=== PATIENT | female | born 1950 | race Caucasian/White ===

== ENCOUNTER 2018-04-21 10:39 | Emergency (ER) | payer MEDICARE, SELFPAY ==
[2018-04-21 10:49] VITALS: BMI 30.9
[2018-04-21 10:52] VITALS: BP 161/144; PULSE 41; PULSE 45; RESP 16
[2018-04-21 10:55] VITALS: BP 166/144; PULSE 41; RESP 14
--- NOTE | 2018-04-21 11:01 | EKG12_ITS ---
Test Reason : CODE BLUE Blood Pressure : / mmHG Vent. Rate : 052 BPM Atrial Rate : 051 BPM P-R Int : 000 ms QRS Dur : 156 ms QT Int : 398 ms P-R-T Axes : 000 -41 052 degrees QTc Int : 370 ms Wide QRS rhythm Left axis deviation Non-specific intra-ventricular conduction block Anterolateral injury pattern ACUTE [place] / STEMI Abnormal ECG Confirmed by CHERYL BANG ([id number]), social media editor CAMILO BUSTAMANTE ([id number]) on 04/30/2018 6:03:51 PM Referred By: Cheryl Bang Confirmed By:CHERYL BANG
--- NOTE | 2018-04-21 11:15 | ED.RN ---
lab rejected blue top, not full enough. pt is currently in center medical and lab director.
[2018-04-21 11:21] LABS: Base Excess -28 mmol/L (-2 to +2); Blood Gas Specimen Type ART; FI02 100; Mode A-C; O2 Delivery Device Vent; PEEP 5; PO2 52 mmHG (75-100); RR 14; SITE R Brachial; SO2 51 % (95-99); Time Given 1106; Total Carbon Dioxide 9 mmol/L; Vt 450; pCO2 49.5 mmHg (35-45); pH 6.76 (7.35-7.45)
--- NOTE | 2018-04-21 11:30 | ED.RN ---
Spoke with Tiffanie in ICU, lab states all blood work need redrawn and ICU aware. Lab attempted to call industrial laborer, no response.
--- NOTE | 2018-04-21 12:21 | CPS ---
CPR performed in concrete mixing plant laborer
--- NOTE | 2018-04-21 12:26 | CL.I_ITS ---
Patient Name: CECILY RODRIGEZ Study Date: 04/21/2018 Performing: Gama Bang MD Ht: 66.92 inches 170 cm : 1950 Wt: 198.42 lbs 90 kg Age: 67 Gender: female BSA: 2.01 PROCEDURE(S) PERFORMED EX12-WPC/COR LO76-SEMU INSERTION AG20-[id number] INTRAVENTRICULAR PACING PP38-TKS, ZOE AND/OR PTCA, ARTERY OR GRAFT, SINGLE VESSEL CLINICAL PROFILE AND CO-MORBIDITIES Patient presents with STEMI for emergent cardiac cath. [facility] EMERGENT CATH/PCI. Indications: Cardiac Arrythmia, Other, Post Cardiac Transplant, Out of hospital cardiac vfib arre st with anterior STEMI found after ROSC. Heart Failure: NYHA Class: 4 Stress/Imaging Stress/Image Study Performed: No CAD Presentations: STEMI. Symptom onset Date/Time: 04/21/2018 Time Not Available Other: Out of hos pital vfib cardiac arrest with defib x 4 total. Comorbidities/Risk Factors: Dyslipidemia Current/Recent Smoker (< 1year) CONCLUSIONS Single vessel CAD of the Occluded LAD Acute MT due to occlusion of LAD Successful establishment of temporary transvenous cardiac pacing Successful emergent IABP placed for hemodynamic support. Successful PTCA/ZOE of the proximal LAD with a 2.5 x 24 Promus Synergy, post dilated with a 3.0 x 12 NC Balloon; 100%-->0%, no dissection. RECOMMENDATIONS Referred for immediate PCI Pt had no pulse upon arrival to lab support tech requiring code blue, CPR, emergent temporary PACER wire, suc cessful emergent PCI/ZOE to LAD and emergent IABP. Despite prolonged CPR, IAPB, wide open levophed t hrough a central line and over 30 minutes of CPR post PCI, pts rhythm, pulse and BP never returned. Code called at 12:05pm. DESCRIPTION OF PROCEDURE The patient arrived to the procedure lab. The risks and benefits of the procedure as well as a full d escription of our services here and lack of surgical backup were fully explained to the patient and/o r their significant other prior to the catheterization. The Timeout was completed, verifying the lisbet ect patient and procedure. The patient's procedural site was prepped and draped in the usual fashion. . Using a modified Seldinger technique, arterial access was obtained via the right femoral artery, a 4Fr sheath was inserted. Venous access was obtained via the right femoral vein, a 7Fr sheath was ins erted. CORONARY ANGIOGRAPHY DOMINANCE: Right Dominant LEFT HEART ASSESSMENT Left Ventricular Ejection Fraction: Not assessed not assessed due to pt coding continuously. LEFT MAIN: Angiographically normal LEFT ANTERIOR DECENDING ARTERY: PROX LAD: is occluded CIRCUMFLEX ARTERY: Non-obstructive RIGHT CORONARY ARTERY: MID RCA: Mild luminal irregularities less than 30% INTERVENTION INFORMATION LESION SITE: LAD (Proximal) Lesion Complexity: High/C, lesion at bifurcation: Yes, thrombus present: Yes, lesion length: 24 mm, c ulprit lesion: Yes Pre Stenosis: 100 % Pre intervention CONSTANZA flow: 0 PROCEDURE: Balloon Angioplasty, Bare Metal Stent with pre and post dilatation., Thrombectomy Post Stenosis: 0 % Post intervention CONSTANZA flow: 3 COMPLICATIONS PROCEDURE MEDICATIONS Heparin 6000 unit(s) IV 04/21/2018 11:32:17 SUMMARY OF HEMODYNAMIC DATA Time AIR REST ECG 12:04:44 ECG 12:05:38 Signed By Gama Bang MD On 04/21/2018 12:25:07 Gama Bang MD
--- NOTE | 2018-04-21 13:03 | ED.VISSUMM ---
- ER Visit Summary Date of Service: 04/21/18 Chief Complaint: [Cardiac arrest] History of Present Illness: The patient is a 67 F [who presents the emergency department in cardiac arrest. She called EMS for shortness of breath when EMS arrived she was in cardiac arrest. Her initial rhythm was V. fib. She was shocked and had return of spontaneous circulation. She had purposeful movements. In route she had another episode of V. fib. She was shocked again and had return of spontaneous circulation. On arrival she was in cardiac arrest. Rhythm was V. fib she was shocked epinephrine was given. She also received amiodarone she had an episode of the tach] Physical Examination: [] Pulseless and apneic Cyanosis central Respiratory effort spontaneously No palpable pulse Abdomen nondistended nontraumatic Lower extremities show no swelling or bruising she has an IO in the right tibia Skin shows cyanosis peripheral and central Test Results: [] Emergency Department Course and Treatment: [ACLS protocol was followed. Patient was in V. fib she also had an episode of V. tach and PEA. There are at least 2 episodes of return of spontaneous circulation. She was resuscitated for a prolonged period given atropine for bradycardia EKG showed a junctional rhythm at a rate of [address] elevations anteriorly and ST depressions in the inferior leads. STEMI was called she was given aspirin and Brilinta heparin was withheld due to hemorrhage in the ET tube she was taken to the Client Resource Specialist where she coded and ] Treatment Plan: [] Disposition: [Client Resource Specialist] Impression: cardiac arrest] This note was generated with Unbound dictation software. It may contain incorrect words, spelling, and punctuation that were not noted in review of the chart prior to signing ED Disposition - Plan for ED Patient: Chief Complaint: CPR Referrals: Care Physician,No Primary [Primary Care Provider] -
--- NOTE | 2018-04-21 13:06 | ED.DCSUM_ITS ---
- ER Visit Summary Date of Service: 04/21/18 Chief Complaint: [Cardiac arrest] History of Present Illness: The patient is a 67 F [who presents the emergency department in cardiac arrest. She called EMS for shortness of breath when EMS arrived she was in cardiac arrest. Her initial rhythm was V. fib. She was shocked and had return of spontaneous circulation. She had purposeful movements. In route she had another episode of V. fib. She was shocked again and had return of spontaneous circulation. On arrival she was in cardiac arrest. Rhythm was V. fib she was shocked epinephrine was given. She also received amiodarone she had an episode of the tach] Physical Examination: [] Pulseless and apneic Cyanosis central Respiratory effort spontaneously No palpable pulse Abdomen nondistended nontraumatic Lower extremities show no swelling or bruising she has an IO in the right tibia Skin shows cyanosis peripheral and central Test Results: [] Emergency Department Course and Treatment: [ACLS protocol was followed. Patient was in V. fib she also had an episode of V. tach and PEA. There are at least 2 episodes of return of spontaneous circulation. She was resuscitated for a prolonged period given atropine for bradycardia EKG showed a junctional rhythm at a rate of [address] elevations anteriorly and ST depressions in the inferior leads. STEMI was called she was given aspirin and Brilinta heparin was withheld due to hemorrhage in the ET tube she was taken to the Process Trainer where she coded and ] Treatment Plan: [] Disposition: [Process Trainer] Impression: cardiac arrest] This note was generated with [employer] dictation software. It may contain incorrect words, spelling, and punctuation that were not noted in review of the chart prior to signing ED Disposition - Plan for ED Patient: Chief Complaint: CPR Referrals: Care Physician,No Primary [Primary Care Provider] -
== END 2018-04-21 14:36 ==
PROVIDERS: Emergency Provider Emergency Medicine
DX: I46.9 Cardiac arrest, cause unspecified (principal); I21.3 ST elevation (STEMI) myocardial infarction of unspecified site; Z72.0 Tobacco use
CPT/HCPCS: 31500; 31720; 33210; 33967; 36600; 82803; 92941; 92950; 93005; 93454; 94002; 99285; J7030; J7050; A4216; C1725; C1757; C1769; C1874; C1887; C1894; C9606; Q9967